=== PATIENT | female | born 1960 | race African-American/Black ===

== ENCOUNTER 2016-12-07 00:51 | Emergency (ER) | payer OTHER ==
[2016-12-07] MEDS ORDERED: MINERAL OIL ENEMA 133 ML BOTTLE RC STA ×2 (01:38→02:51)
[2016-12-07] MEDS ORDERED: SOAP SUDS ENEMA 1 EACH RC ONE (02:11)
[2016-12-07] MEDS ORDERED: MAGNESIUM CITRATE 296 ML BOTTLE PO STA (02:51)
[2016-12-07] MEDS ORDERED: MAGNESIUM CITRATE 296 ML BOTTLE ONE (02:54)
== END 2016-12-07 03:10 | disposition home or self-care (01) ==
DX: K59.00 Constipation, unspecified (principal); I10 Essential (primary) hypertension; Z79.82 Long term (current) use of aspirin
CPT/HCPCS: 74022; 99283; 99284; A9270

== ENCOUNTER 2021-08-26 20:52 | Emergency (ER) | payer OTHER ==
[2021-08-26 22:16] VITALS: BP 129/66
--- NOTE | 2021-08-26 23:32 | XRAY Report ---
PROCEDURE: Wrist 4 View RT INDICATIONS: Trauma TECHNIQUE: 4 views of the wrist were acquired. COMPARISON: None FINDINGS: Bones: No fractures or dislocations. No suspicious bony lesions. Scaphoid view: Normal Soft tissues: No suspicious soft tissue calcifications. IMPRESSION: Normal right wrist Reviewed by: Antolin Goldberg on 08/26/2021 11:32 PM [facility] Approved by: Antolin Goldberg on 08/26/2021 11:32 PM [facility] Station ID: [id number]
== END 2021-08-27 00:15 | disposition left against medical advice (07) ==
LOC: ED 20:52
DX: Z53.21 Procedure and treatment not carried out due to patient leaving prior to being seen by health care provider (principal)
CPT/HCPCS: 99281

== ENCOUNTER 2022-12-03 16:03 | Emergency (ER) | payer OTHER ==
--- NOTE | 2022-12-03 17:37 | ED Physician Documentation ---
PD HPI BACK PAIN - Stated complaint Stated Complaint: NERVE PX - Chief complaint Chief Complaint: Ext Problem - History obtained from History obtained from: Patient - History of Present Illness Timing - onset: Yesterday Timing - duration: Days (1-2) Timing - details: Abrupt onset (she got up from a chair and noted onset of some pain left lower back/SI area that increased through the day and is worse with movement. Unable to straighten back without hurting more. Pain down lateral/posterior left thigh. Not down to foot. No numbness nor weakness.), St ill present, Waxing and waning Location: Lower, Left Quality: Pain, Spasm, Sharp Associated symptoms: No: Fever, Weakness, Numbness, Incontinent of urine Worsened by: Movement, Palpation Contributing factors: Twisting. No: Trauma Similar symptoms before: No diagnosis (had similar episode several months ago lasting week or so. Did not get specific treatment but used OTC meds.) Recently seen: Not recently seen Review of Systems Constitutional: denies: Fever, Chills GI: denies: Abdominal Pain, Nausea, Vomiting, Diarrhea : denies: Dysuria, Incontinent Musculoskeletal: reports: Back pain Neurologic: denies: Focal weakness, Numbness PD PAST MEDICAL HISTORY - Past Medical History Cardiovascular: Hypertension Respiratory: None Endocrine/Autoimmune: None GI: None [employer]: None : None HEENT: None Psych: None Musculoskeletal: None Derm: None - Past Surgical History Past Surgical History: Yes /[employer]: section, Breast reduction - Present Medications Home Medications: Ambulatory Orders Medication Instructions Recorded Confirmed Aspirin [Aspir-Low] 81 mg ORAL DAILY 12/07/16 12/07/16 Docusate Sodium 250Mg Capsule 250 mg PO DAILY #14 capsule 12/07/16 [Colace 250Mg Capsule] Lisinopril/Hydrochlorothiazide 25 mg ORAL DAILY 12/07/16 12/07/16 [Lisinopril-Hctz 20-25 mg Tab] Sennosides [Senna] 8.6 mg PO DAILY #14 tablet 12/07/16 HYDROcod/ACETAM 5/325 [Robert Lee 5/325] 1 ea PO Q6H PRN #18 tablet 12/03/22 HYDROcod/ACETAM 5/325 [Robert Lee 5/325] 1 ea PO Q6H PRN #18 tablet 12/03/22 Meloxicam [Mobic] 7.5 mg PO BID 10 Days #20 tablet 12/03/22 Ondansetron Odt [Zofran] 4 mg TL Q6H PRN #10 tablet 12/03/22 methocarbamoL [Robaxin] 500 mg PO Q6H PRN #30 tablet 12/03/22 - Allergies Allergies/Adverse Reactions: Allergies Allergy/AdvReac Type Severity Reaction Status Date / Time No Known Drug Allergies Allergy Verified 12/03/22 16:31 - Social History Does the pt smoke?: No Smoking Status: Never smoker Does the pt drink ETOH?: No Does the pt have substance abuse?: No - Immunizations Immunizations are current?: Yes - POLST Patient has POLST: No PD ED PE NORMAL - Vitals Vital signs reviewed: Yes - General General: Alert and oriented X 3, Well developed/nourished, Other (appears uncomfortable with guarding ROM of the low back and hunched slightly to the left. ) - Derm Derm: Normal color, Warm and dry, No rash - Neuro Neuro: Alert and oriented X 3, No motor deficit, No sensory deficit, Other (normal patellar reflexes.) Results - Vitals Vitals: Vital Signs - 24 hr 12/03/22 12/03/22 16:28 18:36 Temperature 36.2 C L Heart Rate 80 75 Respiratory 16 16 Rate Blood Pressure 162/87 H 158/78 H O2 Saturation 100 98 Oxygen O2 Source Room air PD Medical Decision Making - ED course Complexity details: considered differential (pain starts at SI area and is tender there, not in lumbar per se. No acute red flags to suggest need for imaging. Can treat as acute myofascial strain with nerve irritation. ), d/w patient (she drove here and driving home so not given sedating meds in ER. She is understanding of reason. ) Departure - Departure Disposition: 01 Home, Self Care Clinical Impression: Sciatic leg pain, Sacroiliac (ligament) sprain Condition: Stable Record reviewed to determine appropriate education?: Yes Instructions: ED Sciatica Follow-Up: JIMMY HENRY MD [Primary Care Provider] - Prescriptions: Meloxicam [Mobic] 7.5 mg PO BID 10 Days #20 tablet HYDROcod/ACETAM 5/325 [Robert Lee 5/325] 1 ea PO Q6H PRN #18 tablet PRN Reason: Pain HYDROcod/ACETAM 5/325 [Robert Lee 5/325] 1 ea PO Q6H PRN #18 tablet PRN Reason: Pain methocarbamoL [Robaxin] 500 mg PO Q6H PRN #30 tablet PRN Reason: Spasms Ondansetron Odt [Zofran] 4 mg TL Q6H PRN #10 tablet PRN Reason: Nausea / Vomiting Comments: This sounds like a nerve inflammation radiating down the leg (sciatic). Location of the pain would suggest perhaps more irritation or inflammation of the nerve starting at the sacroiliac joint rather than the spine itself. Some gentle range of motion and exercises particular to the sacroiliac area are good. We will treat this with a combination of some anti-inflammatories and muscle relaxants. I wrote prescriptions for these. To that add Tylenol every 4-6 hours if needed for pain, or hydrocodone/acetaminophen if needed for worse pain. This would be intended short-term. You can add ondansetron if needed for nausea related to the medicine. Follow-up with your primary care if not improving well over the next several days. Other additional treatments can include physical therapy massage etc. I sent your prescriptions to your preferred pharmacy. I am prescribing a short course of narcotic pain medication for you. These are potentially dangerous and addictive medications that should be used carefully. These medications may constipate you. Take an [id number] stool softener such as docusate twice daily with plenty of water while taking these medications. If you go 24 hours without a bowel movement, take [id number] MiraLAX, per package instructions. Do not drink or drive while taking these medications. If you received narcotic or sedating medications while in the emergency department do not drive for 24 hours. Store this medication in a safe, secure place and out of reach of children. It is a violation of federal law to give or sell this medication to another person or to use in a manner other than prescribed. The ED will not refill narcotic prescriptions, including prescriptions lost or stolen. You can dispose of unwanted medications at the [facility]'s office or at several pharmacies such as [facility]. Discharge Date/Time: 12/03/22 18:37
[2022-12-03] MEDS ORDERED: methocarbamoL 500 MG TABLET PO STA (17:57)
[2022-12-03] MEDS ORDERED: ACETAMINOPHEN 325 MG TABLET PO STA (17:57)
[2022-12-03] MEDS ORDERED: KETOROLAC 30 MG/ML VIAL IM STA (17:57)
[2022-12-03 18:37] VITALS: BP 158/78
== END 2022-12-03 18:37 | disposition home or self-care (01) ==
LOC: ED 16:03
DX: M54.32 Sciatica, left side (principal); S33.6XXA Sprain of sacroiliac joint, initial encounter; X58.XXXA Exposure to other specified factors, initial encounter; Y93.89 Activity, other specified
CPT/HCPCS: 96372; 99283; 99284; A9270